=== PATIENT | male | born 1995 | race Hispanic/Latino ===

== ENCOUNTER 2025-07-17 06:33 | Day surgery (SDC) | payer OTHER ==
[~2025-07-17] VITALS: Ht 162.6 cm; Wt 70.3 kg
[2025-07-17] VITALS (10 sets, daily range): BP systolic 81–114; BP diastolic 38–77; PULSE 57–88; RESP 15–17; TEMP 96.9–97.9
[2025-07-17] MEDS ORDERED: ASHW300C2 PO (07:21)
[2025-07-17] MEDS ORDERED: LINA290C PO (07:21)
[2025-07-17] MEDS: 0.9%NACL 1000ML 1,000 ML IV ONE (07:24)
== END 2025-07-17 09:40 | disposition home or self-care (01) ==
LOC: DAH 06:33 → ENDO 06:33
PROVIDERS: ATTEND Internal Medicine
DX: K92.1 Melena (principal); K59.04 Chronic idiopathic constipation; Z80.0 Family history of malignant neoplasm of digestive organs
CPT/HCPCS: 45378; J7030; J2704 ×2; A4620; A4215; J3490